=== PATIENT | female | born 1985 | race Caucasian/White ===

== ENCOUNTER 2016-12-23 10:28 | Emergency (ER) | payer SELFPAY ==
[~2016-12-23] VITALS: Ht 157.5 cm; Wt 70.5 kg
[~2016-12-23 10:28] MED LIST: AMOXICILLIN 50500 MG PO; CIPRO 500MG TA500 MG PO; DOXYCYCLINE 10100 MG PO; MACROBID100 MG PO; MOTRIN 800800 MG/TAB PO; NO HOME MEDICATIONS; PEN-VEE K500 MG PO; PERCOCET 5/321 UDTAB PO; ROXICODONE 55 MG/TAB PO; ULTRAM 50MG TAB50 MG PO
[2016-12-23 10:31] VITALS: BP 120/61; TEMP 99
[2016-12-23 11:19] LABS: PH 5 (5-8); SQUAMOUS EPITHELIAL 0-2 /hpf; URINE APPEARANCE Hazy; URINE BACTERIA None Seen /hpf; URINE BILIRUBIN Negative (NEGATIVE); URINE BLOOD Negative (NEGATIVE); URINE COLOR Yellow; URINE GLUCOSE Negative (NEGATIVE); URINE KETONE Negative (NEGATIVE); URINE RBC 0-2 /hpf; URINE UROBILINOGEN Negative (NEGATIVE); URINE WBC 0-2 /hpf
[2016-12-23 11:36] LABS: BASO % 0.3 % (0.0-2.0); EOS % 0.3 % (0-4.0); GRAN # 7.3 (1.4-6.5); GRAN % 74.4 % (42.2-75.2); HEMATOCRIT 37.8 % (37.0-47.0); HEMOGLOBIN 12.8 g/dl (12.5-16.0); LYMPH # 1.9 (1.2-3.4); LYMPH % 19.3 % (20.0-51.0); MEAN CELL VOLUME 90 fl (80.0-100.0); MEAN CORPUSCULAR HEMOGLOBIN 31 pg (27.0-31.0); MEAN CORPUSCULAR HGB CONC 34 g/dl (33.0-37.0); MEAN PLATELET VOLUME 9.9 fl (7.4-10.4); MONO # 0.5 (0.1-0.6); MONO % 5.4 % (1.7-9.3); PLATELET COUNT 387 K/mm3 (130-400); RED BLOOD COUNT 4.18 M/mm3 (4.10-5.30); REDCELL DISTRIBUTION WIDTH-CV 12.3 % (11.5-14.5); WHITE BLOOD COUNT 9.8 K/mm3 (4.8-10.8)
[2016-12-23 12:38] LABS: ALBUMIN 4.4 gm/dL (3.5-5.0); BILIRUBIN,TOTAL 0.7 mg/dL (0.0-1.0); CALCIUM 9.3 mg/dL (8.4-10.2); CREATININE, serum 0.65 mg/dL (0.52-1.25); POTASSIUM 3.8 mmol/L (3.4-5.0); TOTAL PROTEIN 7.5 gm/dL (6.4-8.2)
[2016-12-23 12:50] VITALS: PULSE 67
== END 2016-12-23 12:55 | disposition home or self-care (01) ==
LOC: COL.ER 10:28
PROVIDERS: Physician Assistant
DX: R53.81 Other malaise (principal); R63.0 Anorexia; F17.210 Nicotine dependence, cigarettes, uncomplicated

== ENCOUNTER 2017-01-31 21:18 | Emergency (ER) | payer SELFPAY ==
[~2017-01-31] VITALS: Ht 157.5 cm; Wt 72.7 kg
[2017-01-31 21:23] VITALS: BP 117/68; TEMP 98.2
[2017-01-31] MEDS ORDERED: ULTRAM 50MG TAB50 MG PO (22:20)
[2017-01-31 22:35] VITALS: PULSE 94
== END 2017-01-31 22:36 | disposition home or self-care (01) ==
LOC: COL.ER 21:18
DX: S93.402A Sprain of unspecified ligament of left ankle, initial encounter (principal); S99.912A Unspecified injury of left ankle, initial encounter; F17.210 Nicotine dependence, cigarettes, uncomplicated; J45.909 Unspecified asthma, uncomplicated; W18.41XA Slipping, tripping and stumbling without falling due to stepping on object, initial encounter; X50.0XXA Overexertion from strenuous movement or load, initial encounter; Z98.890 Other specified postprocedural states

== ENCOUNTER 2017-05-10 10:39 | Emergency (ER) | payer SELFPAY ==
[~2017-05-10] VITALS: Ht 157.5 cm; Wt 90.9 kg
[2017-05-10 10:48] VITALS: BP 126/87; TEMP 97.6
[2017-05-10] MEDS ORDERED: OXY IR5 MG PO (11:24)
[2017-05-10] MEDS ORDERED: AMOXICILLIN 50500 MG PO (11:24)
[2017-05-10] MEDS ORDERED: CIPRO HC OTIC S10 ML OT (11:24)
[2017-05-10 11:35] VITALS: PULSE 83
== END 2017-05-10 11:36 | disposition home or self-care (01) ==
LOC: COL.ER 10:39
DX: H60.501 Unspecified acute noninfective otitis externa, right ear (principal); K08.89 Other specified disorders of teeth and supporting structures; Z87.891 Personal history of nicotine dependence

== ENCOUNTER 2017-11-05 10:19 | Emergency (ER) | payer BC ==
[~2017-11-05] VITALS: Ht 157.5 cm; Wt 84.5 kg
[~2017-11-05 10:19] MED LIST changes: +CIPRO HC OTIC S10 ML OT; +OXY IR5 MG PO
[2017-11-05 10:28] VITALS: BP 136/94; TEMP 98.4
[2017-11-05] MEDS ORDERED: CIPRO 250MG TA250 MG PO (10:35)
[2017-11-05] MEDS ORDERED: CEPHALEXIN500 M1 PO (10:56)
[2017-11-05] MEDS ORDERED: DOXYCYCLINE 10100 MG PO (11:33)
[2017-11-05 12:07] VITALS: PULSE 69
== END 2017-11-05 12:07 | disposition home or self-care (01) ==
LOC: COL.ER 10:19
DX: L73.9 Follicular disorder, unspecified (principal); Z98.890 Other specified postprocedural states

== ENCOUNTER 2017-12-13 13:18 | Emergency (ER) | payer BC ==
[~2017-12-13] VITALS: Ht 157.5 cm; Wt 82.7 kg
[~2017-12-13 13:18] MED LIST changes: +CEPHALEXIN500 M1 PO; +CIPRO 250MG TA250 MG PO
[2017-12-13 13:24] VITALS: TEMP 97.9
[2017-12-13 14:42] LABS: BASO % 0.8 % (0.0-2.0); EOS # 0.1 (0.0-0.7); EOS % 1.3 % (0-4.0); GRAN # 3.4 (1.4-6.5); GRAN % 63.9 % (42.2-75.2); HEMATOCRIT 38.5 % (37.0-47.0); HEMOGLOBIN 13.2 g/dl (12.5-16.0); LYMPH # 1.3 (1.2-3.4); LYMPH % 24.6 % (20.0-51.0); MEAN CELL VOLUME 87 fl (80.0-100.0); MEAN CORPUSCULAR HEMOGLOBIN 30 pg (27.0-31.0); MEAN CORPUSCULAR HGB CONC 34 g/dl (33.0-37.0); MEAN PLATELET VOLUME 9.7 fl (7.4-10.4); MONO # 0.5 (0.1-0.6); PLATELET COUNT 349 K/mm3 (130-400); RED BLOOD COUNT 4.41 M/mm3 (4.10-5.30); REDCELL DISTRIBUTION WIDTH-CV 12.5 % (11.5-14.5)
[2017-12-13 15:06] LABS: ALANINE AMINOTRANSFERASE 32 U/L (9-52); ALBUMIN 3.9 gm/dL (3.5-5.0); ALKALINE PHOSPHATASE 70 U/L (50-136); ANION GAP 14 mmol/L (7-16); AST,SGOT 33 U/L (15-37); BILIRUBIN,TOTAL 0.3 mg/dL (0.0-1.0); BLOOD UREA NITROGEN 18 mg/dL (7-17); C-REACTIVE PROTEIN 1.8 mg/dL (0.0-0.9); CALCIUM 8.4 mg/dL (8.4-10.2); CARBON DIOXIDE 24 mmol/L (22-30); CHLORIDE 103 mmol/L (98-107); CREATININE, serum 0.62 mg/dL (0.52-1.25); GLUCOSE 89 mg/dL (74-106); POTASSIUM 3.4 mmol/L (3.4-5.0); SODIUM 141 mmol/L (137-145); TOTAL PROTEIN 7.4 gm/dL (6.4-8.2)
[2017-12-13 15:18] LABS: TROPONIN-I < 0.012 ng/mL (0.000-0.034)
[2017-12-13] MEDS ORDERED: CLEOCIN HC150 MG/CAP PO (17:11)
[2017-12-13 17:16] VITALS: BP 123/77; PULSE 83
[2017-12-13] MEDS ORDERED: ULTRAM 50MG TAB50 MG PO (17:44)
== END 2017-12-13 17:49 | disposition home or self-care (01) ==
LOC: COL.ER 13:18
PROVIDERS: Emergency Medicine
DX: R06.02 Shortness of breath (principal); K08.89 Other specified disorders of teeth and supporting structures; F32.9 Major depressive disorder, single episode, unspecified; F41.9 Anxiety disorder, unspecified; Z87.891 Personal history of nicotine dependence; Z98.890 Other specified postprocedural states
CPT/HCPCS: J0696; J3010; Q9967

== ENCOUNTER 2019-05-02 14:43 | Emergency (ER) | payer SELFPAY ==
[~2019-05-02] VITALS: Ht 157.5 cm; Wt 63.6 kg
[~2019-05-02 14:43] MED LIST changes: +CLEOCIN HC150 MG/CAP PO
[2019-05-02 14:47] VITALS: BP 111/72; TEMP 97.7
[2019-05-02 15:05] LABS: COLLECTION METHOD CLEAN CATCH
[2019-05-02] MEDS ORDERED: FLAGYL500 MG PO (16:02)
[2019-05-02 16:09] LABS: SQUAMOUS EPITHELIAL None Seen /hpf; URINE BACTERIA None Seen /hpf; URINE RBC 0-2 /hpf
[2019-05-02 16:17] LABS: MUCOUS Present /lpf; PH 5 (5-8); URINE APPEARANCE Hazy; URINE BILIRUBIN Negative (NEGATIVE); URINE BLOOD Negative (NEGATIVE); URINE COLOR Yellow; URINE GLUCOSE Negative (NEGATIVE); URINE KETONE Negative (NEGATIVE); URINE LEUKOCYTE ESTERASE 2+ (NEGATIVE); URINE NITRATE Negative (NEGATIVE); URINE PROTEIN(semi-quant) Negative (NEGATIVE); URINE UROBILINOGEN Negative (NEGATIVE)
[2019-05-02 17:00] VITALS: PULSE 80
== END 2019-05-02 17:00 | disposition home or self-care (01) ==
LOC: COL.ER 14:43
PROVIDERS: Physician Assistant
DX: N76.0 Acute vaginitis (principal); B96.89 Other specified bacterial agents as the cause of diseases classified elsewhere; N73.9 Female pelvic inflammatory disease, unspecified; F32.9 Major depressive disorder, single episode, unspecified; F41.9 Anxiety disorder, unspecified; F12.90 Cannabis use, unspecified, uncomplicated; Z88.2 Allergy status to sulfonamides; Z88.6 Allergy status to analgesic agent
CPT/HCPCS: J0696; J1885

== ENCOUNTER 2020-02-21 19:39 | Emergency (ER) | payer MEDICAID ==
[~2020-02-21] VITALS: Ht 157.5 cm; Wt 63.6 kg
[~2020-02-21 19:39] MED LIST changes: +FLAGYL500 MG PO
[2020-02-21 19:55] VITALS: BP 100/66; TEMP 99.3
[2020-02-21] MEDS ORDERED: PRENATAL TABLET PO (20:14)
[2020-02-21 20:32] LABS: COLLECTION METHOD CLEAN CATCH
[2020-02-21 20:38] LABS: MUCOUS Present /lpf; PH 7 (5-8); SQUAMOUS EPITHELIAL 0-2 /hpf; URINE APPEARANCE Hazy; URINE BACTERIA Rare /hpf; URINE BILIRUBIN Negative (NEGATIVE); URINE BLOOD Negative (NEGATIVE); URINE COLOR Yellow; URINE GLUCOSE Negative (NEGATIVE); URINE KETONE Negative (NEGATIVE); URINE LEUKOCYTE ESTERASE Negative (NEGATIVE); URINE NITRATE Negative (NEGATIVE); URINE PROTEIN(semi-quant) Negative (NEGATIVE); URINE RBC 0-2 /hpf
[2020-02-21 22:41] VITALS: PULSE 80
== END 2020-02-21 22:46 | disposition home or self-care (01) ==
LOC: COL.ER 19:39
PROVIDERS: Emergency Medicine
DX: O20.0 Threatened abortion (principal); Z3A.08 8 weeks gestation of pregnancy

== ENCOUNTER 2020-02-24 10:32 | Emergency (ER) | payer MEDICAID ==
[~2020-02-24] VITALS: Ht 157.5 cm; Wt 63.6 kg
[~2020-02-24 10:32] MED LIST changes: +PRENATAL TABLET PO
[2020-02-24 10:39] VITALS: BP 116/84; TEMP 97.6
[2020-02-24 12:34] VITALS: PULSE 83
== END 2020-02-24 12:34 | disposition home or self-care (01) ==
LOC: COL.ER 10:32
DX: Z32.01 Encounter for pregnancy test, result positive (principal); Z3A.08 8 weeks gestation of pregnancy; Z98.890 Other specified postprocedural states

== ENCOUNTER 2020-04-27 16:56 | Emergency (ER) | payer MEDICAID ==
[~2020-04-27] VITALS: Ht 157.5 cm; Wt 64.1 kg
[2020-04-27 17:02] VITALS: BP 138/68; TEMP 98.3
[2020-04-27 17:51] LABS: COLLECTION METHOD CLEAN CATCH
[2020-04-27 17:58] LABS: HEMOGLOBIN 11.8 g/dl (12.5-16.0); MEAN CELL VOLUME 91 fl (80.0-100.0); MEAN CORPUSCULAR HEMOGLOBIN 32 pg (27.0-31.0); MEAN CORPUSCULAR HGB CONC 35 g/dl (33.0-37.0); MEAN PLATELET VOLUME 9.7 fl (7.4-10.4); PLATELET COUNT 317 K/mm3 (130-400); RED BLOOD COUNT 3.71 M/mm3 (4.10-5.30); REDCELL DISTRIBUTION WIDTH-CV 13.1 % (11.5-14.5)
[2020-04-27 18:04] LABS: MUCOUS Present /lpf; PH 6 (5-8); SQUAMOUS EPITHELIAL 0-2 /hpf; URINE APPEARANCE Hazy; URINE BACTERIA None Seen /hpf; URINE BILIRUBIN Negative (NEGATIVE); URINE BLOOD Negative (NEGATIVE); URINE COLOR Yellow; URINE GLUCOSE Negative (NEGATIVE); URINE KETONE Negative (NEGATIVE); URINE LEUKOCYTE ESTERASE Negative (NEGATIVE); URINE NITRATE Negative (NEGATIVE); URINE PROTEIN(semi-quant) Negative (NEGATIVE); URINE RBC 0-2 /hpf; URINE UROBILINOGEN Negative (NEGATIVE)
[2020-04-27 18:04] LABS: HEMATOCRIT 33.9 % (37.0-47.0)
[2020-04-27 18:08] LABS: ALBUMIN 3.5 gm/dL (3.5-5.0); BILIRUBIN,TOTAL 0.3 mg/dL (0.0-1.0); CALCIUM 9.1 mg/dL (8.4-10.2); CREATININE, serum 0.47 (0.52-1.25); POTASSIUM 3.6 mmol/L (3.4-5.0); TOTAL PROTEIN 6.5 gm/dL (6.4-8.2)
[2020-04-27 18:40] LABS: BAND 1 % (0-10); LYMPHOCYTE 16 % (20.0-51.0); NEUTROPHILS 78 % (42.0-75.2)
[2020-04-27 18:43] LABS: PLATELET ESTIMATE NORMAL (NORMAL)
[2020-04-27 20:36] VITALS: PULSE 87
== END 2020-04-27 20:36 | disposition home or self-care (01) ==
LOC: COL.ER 16:56
PROVIDERS: Nurse Practitioner
DX: O26.892 Other specified pregnancy related conditions, second trimester (principal); O99.342 Other mental disorders complicating pregnancy, second trimester; R10.9 Unspecified abdominal pain; F32.9 Major depressive disorder, single episode, unspecified; F41.9 Anxiety disorder, unspecified; Z87.891 Personal history of nicotine dependence; Z3A.14 14 weeks gestation of pregnancy

== ENCOUNTER 2020-08-16 12:01 | Outpatient (CLI) | payer MEDICAID ==
[~2020-08-16] VITALS: Ht 160 cm; Wt 86.8 kg
[2020-08-16 12:04] VITALS: BP 134/73; PULSE 105; TEMP 98
--- NOTE | 2020-08-16 12:10 | NUR ---
PATIENT HERE FOR LABOR CHECK. PATIENT STATES SHE IS NOT HAVING LEAKING OF FLUID, BLEEDING OR CONTRACTIONS. PATIENT STATES SHE HAS HAD A HEADACHE OVER THE PAST WEEK ON AND OFF, PATIENT STATES HER HANDS AND FEET AND FACE ARE SWOLLEN. PATIENT SAYS SHE FEELS SHORT OF BREATH. PATIENT DENIES CHEST PAIN. PATIENT HERE ALONE. PATIENT ON EFM. VITALS OBTAINED, ASSESMENT COMPLETE. DR LANDIN ON UNIT REVIEWING EFM AND BLOOD PRESSURES. ORDERS RECIEVED
[2020-08-16 12:30] VITALS: BP 112/66; PULSE 109; TEMP 98
[2020-08-16 12:42] LABS: HEMATOCRIT 39.1 % (37.0-47.0); HEMOGLOBIN 13.4 g/dl (12.5-16.0); MEAN CELL VOLUME 93 fl (80.0-100.0); MEAN CORPUSCULAR HEMOGLOBIN 32 pg (27.0-31.0); MEAN CORPUSCULAR HGB CONC 34 g/dl (33.0-37.0); MEAN PLATELET VOLUME 9.9 fl (7.4-10.4); PLATELET COUNT 344 K/mm3 (130-400); RED BLOOD COUNT 4.21 M/mm3 (4.10-5.30); REDCELL DISTRIBUTION WIDTH-CV 12.7 % (11.5-14.5)
--- NOTE | 2020-08-16 12:45 | NUR ---
PATIENT STATES SHE HAS A MINOR ALLERGY TO TYLENOL, BUT STILL TAKES IT NEEDED
[2020-08-16 12:51] LABS: ALBUMIN 3.2 gm/dL (3.5-5.0); BILIRUBIN,TOTAL 0.4 mg/dL (0.0-1.0); CREATININE, serum 0.41 (0.52-1.25); POTASSIUM 3.6 mmol/L (3.4-5.0); TOTAL PROTEIN 6.3 gm/dL (6.4-8.2)
[2020-08-16 13:00] VITALS: BP 116/65; PULSE 98
[2020-08-16 13:00] LABS: COLLECTION METHOD CLEAN CATCH
[2020-08-16 13:10] LABS: PH 6 (5-8); SQUAMOUS EPITHELIAL None Seen /hpf; URINE APPEARANCE Clear; URINE BACTERIA Rare /hpf; URINE BILIRUBIN Negative (NEGATIVE); URINE BLOOD Negative (NEGATIVE); URINE COLOR Straw; URINE GLUCOSE Negative (NEGATIVE); URINE KETONE Negative (NEGATIVE); URINE LEUKOCYTE ESTERASE Negative (NEGATIVE); URINE NITRATE Negative (NEGATIVE); URINE PROTEIN(semi-quant) Negative (NEGATIVE); URINE RBC 0-2 /hpf; URINE UROBILINOGEN Negative (NEGATIVE)
[2020-08-16 13:15] VITALS: BP 119/65; PULSE 88
[2020-08-16 13:50] LABS: BAND 5 % (0-10); LYMPHOCYTE 12 % (20.0-51.0); NEUTROPHILS 81 % (42.0-75.2); PLATELET ESTIMATE NORMAL (NORMAL)
== END 2020-08-16 13:20 | disposition home or self-care (01) ==
LOC: LDRO 12:01
PROVIDERS: Obstetrics & Gynecology
DX: O99.891 Other specified diseases and conditions complicating pregnancy (principal); R51.9 Headache, unspecified; Z3A.29 29 weeks gestation of pregnancy; Z91.410 Personal history of adult physical and sexual abuse; Z87.891 Personal history of nicotine dependence

== ENCOUNTER 2020-09-08 12:26 | Outpatient (CLI) | payer MEDICAID ==
[~2020-09-08] VITALS: Ht 160 cm; Wt 90.9 kg
--- NOTE | 2020-09-08 12:30 | NUR ---
1230- PT. AMBULATORY TO THE UNIT BY HER SELF. PT. OF PRIDDLE WITH TWIN PREGANCY AT 32.6. SHE IS A . COMES IN WITH CHIEF COMPLAINT OF POSSIBLE SROM AROUND 1030 THIS MORNING AND POSSIBLE CONTRACTIONS, SHE IS FEELING SOME CRAMPING PRESSURE DOWN BELOW. REPORTS GFM, AND NO BLEEDING. 1235- EFMS AND TOCO ON AND TRACING INTERMITTENTLY DUE TO AUDIBLE MOVMENT OF FETUSES. VITALS TAKEN, ASSESSMENT COMPLETED. SVE INNER OS CLOSED, OUTER OS FINGERTIP, AND AMNIOTRACE WAS NEGATIVE. DISCUSSED WATCHING FOR 20-60 TO MAKE SURE BABIES LOOK OK. PT. VERBALIZED UNDERSTANDING AND DENIES FURTHER NEEDS AT THIS TIME. CALL LIGHT WITHIN REACH.
[2020-09-08 13:41] VITALS: BP 121/75; PULSE 91; TEMP 98
== END 2020-09-08 14:00 | disposition home or self-care (01) ==
LOC: LDRO 12:26
DX: O26.893 Other specified pregnancy related conditions, third trimester (principal); R10.9 Unspecified abdominal pain; Z3A.32 32 weeks gestation of pregnancy

== ENCOUNTER 2020-09-23 13:23 | Outpatient (RCR) | payer MEDICAID ==
[~2020-09-23] VITALS: Ht 160 cm; Wt 92.5 kg
--- NOTE | 2020-09-23 13:10 | NUR ---
1310- 35 Week G5L2 with Di/Di twins ambulatory to LR 3 for scheduled NST. Assessment complete. Patient reports increased swelling in hands but no headaches or regular contractions or VB/LOF. Reports good FM for baby A & B. Baby A right upper quadrant baby B left lower quadrant. FHR reactive for both babies. No contractions. Dr. Zabala updated. orders to send patient home to return to OB office next week for scheduled sono and OB visit and return to unit in two weeks. 1355-Dishcarge instructions reviewd. 1400-Ambulatory off unit.
[2020-10-03] MEDS ORDERED: IBU800 M1 PO (10:51)
[2020-10-04] MEDS ORDERED: POLYSACC IRON150 MG PO (07:37)
[2020-10-04] MEDS ORDERED: IBU800 M1 PO (07:37)
[2020-10-04] MEDS ORDERED: ROXICODONE 55 MG/TAB PO (07:37)
== END 2020-12-22 | disposition home or self-care (01) ==
LOC: LDRO
DX: O30.93 Multiple gestation, unspecified, third trimester (principal); Z3A.35 35 weeks gestation of pregnancy

== ENCOUNTER 2020-09-25 13:39 | Outpatient (CLI) | payer MEDICAID ==
[~2020-09-25] VITALS: Ht 160 cm; Wt 92.7 kg
[2020-09-25 13:44] VITALS: BP 128/78; PULSE 91; TEMP 98.2
--- NOTE | 2020-09-25 13:55 | NUR ---
1355-G5L2 [address] Manning with di/di twins ambulatory to LR 4 for BP check. Reports having called the office and instructed to come to unit after reporing increased swellin in hands. Rpeorts headache started when she went outside in sunlight but has not treated it with anything. Asissted into gown. and placed on EFM. Reactive FHR x2. [place] without contraction and and patient denies any contractions. VSS. 1413-Dr. Zabala updated. See MD notification. 1432-Patient off EFM. Reviewed discharge instructions. 1440-Ambulatory off unit.
[2020-09-25 14:15] VITALS: BP 123/81; PULSE 93; TEMP 98.2
[2020-09-25 14:32] VITALS: BP 129/76; PULSE 86
== END 2020-09-25 14:40 | disposition home or self-care (01) ==
LOC: LDRO 13:39
DX: O12.03 Gestational edema, third trimester (principal); Z3A.35 35 weeks gestation of pregnancy

== ENCOUNTER 2020-10-01 05:39 | Inpatient (IN) | payer MEDICAID ==
[~2020-10-01] VITALS: Ht 160.1 cm; Wt 94.5 kg
[2020-10-01] VITALS (37 sets, daily range): BP systolic 60–142; BP diastolic 26–83; PULSE 57–97; TEMP 97.7–99.1
--- NOTE | 2020-10-01 05:45 | NUR ---
Pt arrived on unit ambulatory and escorted by spouse for scheduled . Pt denies any contractions, leaking of fluid or vaginal bleeding and reports normal movement. EFM and toco monitors started. Vital signs WNL. Plan of care reviewed with pt. Pt oriented to room, bed and call light within reach.
[2020-10-01 06:48] LABS: HEMATOCRIT 39.1 % (37.0-47.0); HEMOGLOBIN 13.6 g/dl (12.5-16.0); MEAN CELL VOLUME 92 fl (80.0-100.0); MEAN CORPUSCULAR HEMOGLOBIN 32 pg (27.0-31.0); MEAN CORPUSCULAR HGB CONC 35 g/dl (33.0-37.0); MEAN PLATELET VOLUME 11.2 fl (7.4-10.4); PLATELET COUNT 360 K/mm3 (130-400); RED BLOOD COUNT 4.25 M/mm3 (4.10-5.30); REDCELL DISTRIBUTION WIDTH-CV 13.2 % (11.5-14.5)
[2020-10-01 07:26] LABS: TRICYCLIC ANTIDEPRESS URINE NEGATIVE
[2020-10-01 07:37] LABS: BAND 5 % (0-10); LYMPHOCYTE 20 % (20.0-51.0); NEUTROPHILS 71 % (42.0-75.2); PLATELET ESTIMATE NORMAL (NORMAL)
--- NOTE | 2020-10-01 10:45 | NUR ---
1045:This RN at bedside at and patient sleeping at this time. Blood pressure 67/35 and pulse 62. Karmen notified. 1055: This RN wakes patients and readjusts position. Patient flushed and states she is dizzy. Blood pressure 63/33 pulse 61. Abe BOYD notified and in with patient at this time. Orders to lay patient flat and recheck. Fundal massage done-blood clot noted on pad and chux covered in moderate amount of blood. Fundal massage done and firm. 1103: Dr. Zabala called and notified per Karmen FU. Orders to give methergine. Oxygen placed via mask on patient at 2L due O2-93% and increasing to 98%. Methergine given in right thigh. IV found to be inflitrated in right hand. Discontinued at this time. Difficulty finding another IV placement. Karel FU, Skyler FU, Ioana Vick, Toni FU, Yung RN at bedside. Karel FU and Skyler FU attempting IV start at this time. Tj griggs applied to patient. maintenance and operations supervisor called for assistance. Abe BOYD at bedside and attempting IV start. Dr. Zabala at bedside and no new orders at this time. 1120: IV started in right foot and pitocin infusing.
[2020-10-01 11:22] LABS: MEAN CELL VOLUME 91 fl (80.0-100.0); MEAN CORPUSCULAR HEMOGLOBIN 32 pg (27.0-31.0); MEAN CORPUSCULAR HGB CONC 35 g/dl (33.0-37.0); MEAN PLATELET VOLUME 10.5 fl (7.4-10.4); PLATELET COUNT 309 K/mm3 (130-400); RED BLOOD COUNT 3.68 M/mm3 (4.10-5.30)
[2020-10-01 11:29] LABS: HEMATOCRIT 33.6 % (37.0-47.0); HEMOGLOBIN 11.7 g/dl (12.5-16.0)
[2020-10-01 12:08] LABS: BAND 4 % (0-10); LYMPHOCYTE 5 % (20.0-51.0); NEUTROPHILS 90 % (42.0-75.2)
[2020-10-01 12:10] LABS: PLATELET ESTIMATE NORMAL (NORMAL)
--- NOTE | 2020-10-01 12:10 | NUR ---
Patient resting and states feeling better at this time. Bear hugger removed.
--- NOTE | 2020-10-01 16:45 | NUR ---
Patient states "When will I be able to see babies, I am just worried they will not love me, I havent been able to really see them or hold them". Patient becomes very emotional at this time and this RN updates patient of plan and patient verbalizes understanding. 1700: Patient states "After I eat supper, can I get up and go to nursery to see babies", Plan discussed. 1745: Patient asked if she has custody of two other children, patient states "They were adopted out to my aunt when they were 3 and 4 years old". 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 Patient makes comment "Dong is at court right now and will be back later".
[2020-10-02 00:30] VITALS: BP 144/75; PULSE 75; TEMP 97.5
[2020-10-02 03:00] VITALS: BP 128/64; PULSE 67; TEMP 97.6
[2020-10-02 06:55] LABS: HEMOGLOBIN 10.2 g/dl (12.5-16.0); MEAN CELL VOLUME 94 fl (80.0-100.0); MEAN CORPUSCULAR HEMOGLOBIN 32 pg (27.0-31.0); MEAN CORPUSCULAR HGB CONC 34 g/dl (33.0-37.0); MEAN PLATELET VOLUME 10.7 fl (7.4-10.4); PLATELET COUNT 326 K/mm3 (130-400); REDCELL DISTRIBUTION WIDTH-CV 13.1 % (11.5-14.5)
[2020-10-02 07:00] LABS: HEMATOCRIT 30.2 % (37.0-47.0)
[2020-10-02 08:15] VITALS: BP 132/81; PULSE 72; TEMP 97.7
--- NOTE | 2020-10-02 08:46 | NUR ---
0815 PT IN BED WITH RF IV INFUSING FLUIDS. DC'D FLUIDS PER DR. NAYLOR. DC'D R TOE IV. PT COMPLAINS OF 10/10 PAIN AT THIS TIME. PT ROLLED TO BACK FROM HER RIGHT SIDE. ASSESSMENT DONE. BILATERAL EDEMA IN LOWER EXTREMITIES. SCD'S PLACED BACK ON AT THIS TIME. PT REFUSES REMOVAL OF CALDERÓN AT THIS TIME. REQUESTS SECOND DOSE OF ROXICODONE BEFORE GETTING UP TO REMOVE CALDERÓN. RN TRIED TO OPEN PT BATHROOM TO CHECK SUPPLIES AND PT QUICKLY TOLD RN THAT HER BOYFRIEND WAS IN THERE. 0840 RN GAVE REPORT TO [employer]. RN ASKED IF BOYFRIEND IN ROOM, SW STATES HE PT SAYS HE IS IN THE BATHROOM.
--- NOTE | 2020-10-02 09:48 | NUR ---
Initial visit; Patient thanked Briana for offering congratulations and God's blessings for the of her twins. Weigher Operator thanked Mom for choosing [facility].
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
--- NOTE | 2020-10-02 10:33 | NUR ---
0968 PT EATING BREAKFAST AT THIS TIME. REQUESTS ROXICODONE. PAIN 12/12. PT DESIRES TO WAIT UNTIL 1030 TO GET UP AND HAVE CALDERÓN OUT.
--- NOTE | 2020-10-02 11:40 | NUR ---
1040 pt ambulated to bathroom at this time. rouse catheter removed. pericare performed. pt requests to shower. int in forearm covered with plastic and tape. bed linens changed at this time. 1135 pt back in bed, resting comfortably. incision with edges approximated. no redness or drainage. binder on. pt requests mylicon at this time.
--- NOTE | 2020-10-02 13:47 | NUR ---
1245 MOTHER TO NURSERY TO HOLD INFANTS AT THIS TIME. HELD BOTH BABIES ONE AT A TIME. WATCHED PO FEEDING BY RN. ASKED APPROPRIATE QUESTIONS. BACK TO ROOM AT 1330.
[2020-10-02 17:30] VITALS: BP 117/56; PULSE 80; TEMP 98.3
[2020-10-02 21:00] VITALS: BP 126/61; PULSE 78; TEMP 98
[2020-10-03 07:30] VITALS: BP 124/75; PULSE 81; TEMP 97.8
[2020-10-03] MEDS ORDERED: IBU800 M1 PO (10:51)
[2020-10-03 11:45] VITALS: BP 130/82; PULSE 98; TEMP 99.1
[2020-10-03 15:55] VITALS: BP 129/75; PULSE 99; TEMP 99
[2020-10-03 19:45] VITALS: BP 127/76; PULSE 105; TEMP 98.3
[2020-10-04 06:35] VITALS: BP 135/82; PULSE 97; TEMP 98.2
[2020-10-04] MEDS ORDERED: POLYSACC IRON150 MG PO (07:37)
[2020-10-04] MEDS ORDERED: ROXICODONE 55 MG/TAB PO (07:37)
[2020-10-04] MEDS ORDERED: IBU800 M1 PO (07:37)
== END 2020-10-04 16:15 | disposition home or self-care (01) | DRG 787 ==
LOC: OB 05:39
PROVIDERS: ADMIT Obstetrics & Gynecology
PROC: 10D00Z1 Extraction of Products of Conception, Low, Open Approach (ICD-10-PCS; principal; 2020-10-01)
DX: O36.5931 Maternal care for other known or suspected poor fetal growth, third trimester, fetus 1 (principal); O72.1 Other immediate postpartum hemorrhage; O30.043 Twin pregnancy, dichorionic/diamniotic, third trimester; Z37.2 Twins, both liveborn; O34.211 Maternal care for low transverse scar from previous cesarean delivery; O36.5932 Maternal care for other known or suspected poor fetal growth, third trimester, fetus 2; O90.81 Anemia of the puerperium; D64.9 Anemia, unspecified; Z3A.36 36 weeks gestation of pregnancy
CPT/HCPCS: J0690; J1100; J1885; J2210; J2270; J2405; J2590; J7120

== ENCOUNTER 2022-03-16 09:18 | Emergency (ER) | payer MEDICAID ==
[~2022-03-16] VITALS: Ht 154.9 cm; Wt 75.0 kg
[~2022-03-16 09:18] MED LIST changes: +IBU800 M1 PO; +POLYSACC IRON150 MG PO
[2022-03-16 09:26] VITALS: TEMP 98.6
[2022-03-16 09:39] LABS: COLLECTION METHOD CLEAN CATCH
[2022-03-16] MEDS ORDERED: FLAGYL500 MG PO ×4 (10:05→10:57)
[2022-03-16 10:42] LABS: MUCOUS Present (NOT PRESENT); PH 5 (5-8); URINE APPEARANCE Hazy (CLEAR/HAZY); URINE BACTERIA Rare /hpf (NONE SEEN); URINE BILIRUBIN Negative (NEGATIVE); URINE BLOOD Negative (NEGATIVE); URINE COLOR Yellow (YELLOW); URINE GLUCOSE Negative (NEGATIVE); URINE KETONE Negative (NEGATIVE); URINE LEUKOCYTE ESTERASE 2+ (NEGATIVE); URINE NITRATE Negative (NEGATIVE); URINE PROTEIN(semi-quant) Negative (NEGATIVE); URINE UROBILINOGEN Negative (NEGATIVE)
[2022-03-16] MEDS ORDERED: CIPRO 250MG TA250 MG PO (10:52)
[2022-03-16 11:00] VITALS: BP 103/67; PULSE 67
== END 2022-03-16 11:00 | disposition home or self-care (01) ==
LOC: COL.ER 09:18
PROVIDERS: Emergency Medicine
DX: N39.0 Urinary tract infection, site not specified (principal); N89.8 Other specified noninflammatory disorders of vagina; Z20.2 Contact with and (suspected) exposure to infections with a predominantly sexual mode of transmission; Z88.2 Allergy status to sulfonamides; Z91.040 Latex allergy status; Z28.310 Unvaccinated for COVID-19
CPT/HCPCS: J0696